=== PATIENT | female | born 1960 | race Caucasian/White ===

== ENCOUNTER → 2023-09-22 16:17 | Outpatient (REF) | payer BC, SELFPAY | LOC: HWWDC 16:17 | PROVIDERS: ATTENDING PHYSICIAN Obstetrics & Gynecology Gynecology; FAMILY PHYSICIAN Nurse Practitioner Adult Health | DX: Z12.31 Encounter for screening mammogram for malignant neoplasm of breast (principal) | CPT/HCPCS: 77063; 77067 ==

== ENCOUNTER → 2024-11-18 13:34 | Outpatient (REF) | payer BC, SELFPAY | LOC: HWWDC 13:34 | PROVIDERS: ATTENDING PHYSICIAN Obstetrics & Gynecology Gynecology; FAMILY PHYSICIAN Nurse Practitioner Adult Health | DX: Z12.31 Encounter for screening mammogram for malignant neoplasm of breast (principal) | CPT/HCPCS: 77063; 77067 ==